=== PATIENT | female | born 1975 | race Caucasian/White ===

== ENCOUNTER 2022-12-30 07:31 | Inpatient (IN) | payer BC, OTHER ==
[2022-12-30 08:33] LABS: BHCG - Serum Negative (NEGATIVE); Pregs Control Background? CLEAR/WHITE (CLR/WHITE); Pregs Control Bar Appear? YES (CONTROL BAR)
[2022-12-30 08:39] LABS: ALT (SGPT) Less than 7 U/L (8-55); AST (SGOT) 9 U/L (5-34); Albumin 3.8 g/dL (3.5-5.0); Alkaline Phosphatase 82 U/L (40-110); Anion Gap 12 mmol/L (10-20); BUN (Urea Nitrogen) 11 mg/dL (7.0-18.7); Bilirubin, Total 0.4 mg/dL (0.2-1.2); Calc. Creatinine Clearance 0 mL/min (70-130); Calcium 8.6 mg/dL (7.8-10.44); Carbon Dioxide 22 mmol/L (22-29); Chloride 108 mmol/L (98-107); Estimated GFR 95; Globulin 3.7 g/dL (2.4-3.5); Glucose 100 mg/dL (70-105); Potassium 3.8 mmol/L (3.5-5.1); Protein, Total 7.5 g/dL (6.0-8.3); Sodium 138 mmol/L (136-145)
[2022-12-30 08:48] LABS: Troponin I Less than 0.010 ng/mL (< 0.028)
[2022-12-30 08:58] LABS: Mean Platelet Volume 10.9 fl (7.4-10.4)
[2022-12-30 09:28] LABS: #Eosinphils 0.1 10x3/uL (0.0-0.5); #Monocytes 0.4 10x3/uL (0.0-1.1); #Neutrophils 6.5 10x3/uL (1.5-8.4); %Monocytes 4.8 % (0.0-10.0); %Neutrophils 81.9 % (40.0-75.0); Hematocrit 13.6 % (34.9-44.5); Hemoglobin 3.2 g/dL (12.0-15.5); Mean Corpuscular HGB CONC 23.5 g/dL (32.0-36.0); Mean Corpuscular Volume 63.6 fl (81.6-98.3); Platelet Count 288 10x3/uL (150-450); RBC Distribution Width 22.2 % (11.5-14.5); Red Blood Cell (RBC) Count 2.14 10x6/uL (3.90-5.03); White Blood Cell (WBC) Count 7.9 10x3/uL (3.5-10.5)
[2022-12-30 09:30] LABS: Anisocytosis MODERATE=16-30 cells (100X) (0-5/hpf); Hypochromia MODERATE=16-30 cells (100X) (0-5/hpf); Microcytosis MODERATE=15-30 cells (100X) (0-5/hpf); Poikilocytosis SLIGHT = 6-15 cells (100X) (0-5/hpf)
[2022-12-30 09:31] LABS: Reflex for Review?? YES
[2022-12-30 09:52] LABS: Iron 15 ug/dL (50-170); Iron Binding Capacity, Total 450 mcg/dL (265-497)
[2022-12-30 10:16] LABS: Iron 16 ug/dL (50-170); Iron Binding Capacity, Total 450 mcg/dL (265-497)
[2022-12-30] MEDS ORDERED: Iopamidol 370 76% 100 ML VIAL ONE (12:45)
[2022-12-30] MEDS ORDERED: hydrALAZINE 20 MG/ML VIAL SLOW IVP PRN (16:06)
[2022-12-30 16:57] LABS: #Monocytes 0.4 10x3/uL (0.0-1.1); #Neutrophils 8.3 10x3/uL (1.5-8.4); %Basophils 0.1 % (0.0-2.0); %Eosinophils 0.2 % (0.0-6.0); %Lymphocytes 10.2 % (18.0-47.0); %Monocytes 4.4 % (0.0-10.0); %Neutrophils 84.4 % (40.0-75.0); Hematocrit 18.4 % (34.9-44.5); Hemoglobin 5.1 g/dL (12.0-15.5); Mean Corpuscular HGB CONC 27.7 g/dL (32.0-36.0); Mean Corpuscular Hemoglobin 19.3 pg (27.0-33.0); Mean Corpuscular Volume 69.7 fl (81.6-98.3); Platelet Count 295 10x3/uL (150-450); RBC Distribution Width 24.7 % (11.5-14.5); Red Blood Cell (RBC) Count 2.64 10x6/uL (3.90-5.03); White Blood Cell (WBC) Count 9.8 10x3/uL (3.5-10.5)
[2022-12-30 17:46] LABS: Anisocytosis MODERATE=16-30 cells (100X) (0-5/hpf); Elliptocytes SLIGHT = 2-5 cells (100X) (0-1/hpf); Hypochromia MODERATE=16-30 cells (100X) (0-5/hpf); Microcytosis MODERATE=15-30 cells (100X) (0-5/hpf); Ovalocytes SLIGHT = 2-5 cells (100X) (0-1/hpf); Poikilocytosis SLIGHT = 6-15 cells (100X) (0-5/hpf)
[2022-12-30 17:47] LABS: Tear Drops SLIGHT = 2-5 cells (100X) (0-1/hpf)
[2022-12-30 17:48] LABS: Large Platelets SLIGHT (None Seen); Platelet Adequacy Comment Appears Adequate; Schistocytes SLIGHT = 2-5 cells (100X) (0-1/hpf)
[2022-12-30] MEDS ORDERED: Iron, Sodium Ferric Gluconate 125 MG in Sodium Chloride 0.9% 100 ML IVPB SCH (20:30)
[2022-12-31 07:27] LABS: Hematocrit 18.6 % (34.9-44.5); Hemoglobin 5.4 g/dL (12.0-15.5); Mean Corpuscular Hemoglobin 20.4 pg (27.0-33.0); Mean Corpuscular Volume 70.2 fl (81.6-98.3); Platelet Count 247 10x3/uL (150-450); RBC Distribution Width 24.4 % (11.5-14.5); Red Blood Cell (RBC) Count 2.65 10x6/uL (3.90-5.03); White Blood Cell (WBC) Count 7.5 10x3/uL (3.5-10.5)
[2022-12-31] MEDS ORDERED: Bisacodyl 5 MG TAB PO PRN (11:47)
[2022-12-31] MEDS ORDERED: Polyethylene Glycol 3350 17 GM Packet PO PRN (11:47)
[2022-12-31] MEDS ORDERED: Amlodipine 5 MG TAB PO SCH (21:00)
[2023-01-01 05:56] LABS: Hematocrit 20.7 % (34.9-44.5); Hemoglobin 5.9 g/dL (12.0-15.5); Mean Corpuscular HGB CONC 28.5 g/dL (32.0-36.0); Mean Corpuscular Hemoglobin 20.1 pg (27.0-33.0); Mean Corpuscular Volume 70.4 fl (81.6-98.3); Platelet Count 262 10x3/uL (150-450); Red Blood Cell (RBC) Count 2.94 10x6/uL (3.90-5.03); White Blood Cell (WBC) Count 9.8 10x3/uL (3.5-10.5)
[2023-01-01] MEDS ORDERED: diphenhydrAMINE 25 MG in Sodium Chloride 0.9% 50 ML IVPB SCH (07:45)
[2023-01-01] MEDS ORDERED: diphenhydrAMINE 50 MG/ML VIAL IVP SCH (08:00)
[2023-01-01 13:11] VITALS: BP 126/65; TEMP 97.6
[2023-01-01 14:58] LABS: Hematocrit 24.6 % (34.9-44.5); Mean Corpuscular HGB CONC 28.5 g/dL (32.0-36.0); Mean Corpuscular Hemoglobin 20.6 pg (27.0-33.0); Mean Corpuscular Volume 72.6 fl (81.6-98.3); Platelet Count 313 10x3/uL (150-450); RBC Distribution Width 26.1 % (11.5-14.5); Red Blood Cell (RBC) Count 3.39 10x6/uL (3.90-5.03); White Blood Cell (WBC) Count 11.3 10x3/uL (3.5-10.5)
== END 2023-01-01 16:08 | disposition home or self-care (01) | DRG 812 ==
LOC: CSHERS 07:31 → CSHTELE 09:00 → OBSVTOIN 12-31 15:18
PROVIDERS: ADMIT Internal Medicine; ATTEND Internal Medicine
PROC: 30233N1 Transfusion of Nonautologous Red Blood Cells into Peripheral Vein, Percutaneous Approach (ICD-10-PCS; principal; 2022-12-31)
DX: D50.9 Iron deficiency anemia, unspecified (principal); N92.0 Excessive and frequent menstruation with regular cycle; I10 Essential (primary) hypertension; F41.0 Panic disorder [episodic paroxysmal anxiety]; Z90.710 Acquired absence of both cervix and uterus
CPT/HCPCS: 36415; 36430; 71045; 71275; 80053; 82274; 82728; 83540; 83550; 83880; 84484; 84703; 85025; 85027; 85060; 85379; 86850; 86900; 86901; 93005; 96374; 96375; G0378; J0360; J1200; J2916; J3490; P9016; Q9967

== ENCOUNTER 2023-03-04 10:27 | Emergency (ER) | payer BC ==
[2023-03-04 11:01] LABS: #Eosinphils 0.1 10x3/uL (0.0-0.5); #Monocytes 0.4 10x3/uL (0.0-1.1); #Neutrophils 4.5 10x3/uL (1.5-8.4); %Basophils 0.3 % (0.0-2.0); %Eosinophils 2.1 % (0.0-6.0); %Monocytes 6.2 % (0.0-10.0); %Neutrophils 70.2 % (40.0-75.0); Hematocrit 31.6 % (34.9-44.5); Hemoglobin 10.1 g/dL (12.0-15.5); Mean Corpuscular Hemoglobin 27.4 pg (27.0-33.0); Mean Corpuscular Volume 85.9 fl (81.6-98.3); Mean Platelet Volume 11.3 fl (7.4-10.4); Platelet Count 305 10x3/uL (150-450); RBC Distribution Width 14.5 % (11.5-14.5); Red Blood Cell (RBC) Count 3.68 10x6/uL (3.90-5.03); White Blood Cell (WBC) Count 6.3 10x3/uL (3.5-10.5)
[2023-03-04 11:12] LABS: ALT (SGPT) 8 U/L (8-55); AST (SGOT) 13 U/L (5-34); Albumin 3.9 g/dL (3.5-5.0); Alkaline Phosphatase 62 U/L (40-110); Anion Gap 12 mmol/L (10-20); BUN (Urea Nitrogen) 10 mg/dL (7.0-18.7); Bilirubin, Total 0.3 mg/dL (0.2-1.2); Calc. Creatinine Clearance 0 mL/min (70-130); Calcium 8.6 mg/dL (7.8-10.44); Carbon Dioxide 20 mmol/L (22-29); Chloride 110 mmol/L (98-107); Estimated GFR 95; Globulin 3.1 g/dL (2.4-3.5); Glucose 106 mg/dL (70-105); Sodium 138 mmol/L (136-145)
[2023-03-04 11:18] LABS: Troponin I Less than 0.010 ng/mL (< 0.028)
[2023-03-04 12:55] LABS: Bilirubin Neg (Negative); Blood, Urine 25 (Negative); Clarity Slightly Cloudy (Clear); Glucose, Urine (Dipstick) Normal (Negative); Ketone, Urine Negative (Negative); Leukocyte Negative (Negative); Nitrite Negative (Negative); Protein, Urine (Dipstick) 30 mg/dl (Neg-Trace); Urobilinogen Normal mg/dL (Less than 2)
[2023-03-04 13:04] LABS: Pregnancy Test - Urine (BHCG) Negative (Negative); Pregu Control Background? CLEAR/WHITE (CLR/WHITE); Pregu Control Bar Appear? YES (CONTROL BAR)
[2023-03-04 13:20] LABS: Bacteria/HPF Rare-Few HPF (None Seen); CAUTI Indications for Culture Pelvic or flank pain; RBC/HPF Greater than 50 HPF (0-3); Squamous Epithelial 0-3 HPF (0-3); WBC/HPF 0-3 HPF (0-3)
[2023-03-04 13:22] LABS: Urine Culture Reflex No No
== END 2023-03-04 13:18 | disposition home or self-care (01) ==
LOC: CSHERS 10:27
DX: D64.9 Anemia, unspecified (principal); N93.9 Abnormal uterine and vaginal bleeding, unspecified
CPT/HCPCS: 71045; 80053; 81001; 81025; 83880; 84484; 85025; 93005

== ENCOUNTER 2024-12-03 08:28 | Emergency (ER) | payer BC ==
[2024-12-03 09:16] LABS: Platelet Count 244 10x3/uL (150-450)
[2024-12-03 09:17] LABS: #Basophils Less than 0.03 10x3/uL (0.0-0.2); #Eosinophils 0.08 10x3/uL (0.0-0.5); #Monocytes 0.31 10x3/uL (0.0-1.1); #Neutrophils 3.90 10x3/uL (1.5-8.4); %Basophils 0.0 % (0.0-2.0); %Eosinophils 1.5 % (0.0-6.0); %Lymphocytes 21.7 % (18.0-47.0); %Monocytes 5.6 % (0.0-10.0); %Neutrophils 71.0 % (40.0-75.0); Hematocrit 15.3 % (34.9-44.5); Hemoglobin 3.8 g/dL (12.0-15.5); Mean Corpuscular Hemoglobin 16.0 pg (27.0-33.0); Mean Corpuscular Volume 64.3 fL (81.6-98.3); Red Blood Cell (RBC) Count 2.38 10x6/uL (3.90-5.03); White Blood Cell (WBC) Count 5.49 10x3/uL (3.5-10.5)
[2024-12-03 09:22] LABS: INR-International Normal Ratio 1.0; Prothrombin Time 10.5 sec (9.5-12.1)
[2024-12-03 09:26] LABS: ALT (SGPT) Less than 7 U/L (Less than 34); AST (SGOT) 14 U/L (11-34); Albumin 3.6 g/dL (3.1-4.5); Alkaline Phosphatase 91 U/L (40-110); Anion Gap 11 mmol/L (10-20); BUN (Urea Nitrogen) 9 mg/dL (7.0-18.7); Bilirubin, Total 0.4 mg/dL (0.3-1.2); Calc. Creatinine Clearance 0 mL/min (70-130); Calcium 8.7 mg/dL (7.8-10.44); Carbon Dioxide 23 mmol/L (22-29); Chloride 108 mmol/L (98-107); Globulin 3.7 g/dL (2.4-3.5); Glucose 99 mg/dL (70-105); Potassium 4.1 mmol/L (3.5-5.1); Sodium 138 mmol/L (136-145)
[2024-12-03 10:23] LABS: Anisocytosis MARKED = >30 cells (100X) (0-5/hpf); Microcytosis MODERATE=15-30 cells (100X) (0-5/hpf); Ovalocytes SLIGHT = 2-5 cells (100X) (0-1/hpf); Platelet Adequacy Comment Appears Adequate; Polychromasia SLIGHT = 2-3 cells (100X) (0-2/hpf)
[2024-12-03 10:24] LABS: Reflex for Review?? YES
[2024-12-03 18:08] LABS: Hematocrit 24.3 % (34.9-44.5); Hemoglobin 6.9 g/dL (12.0-15.5)
== END 2024-12-03 19:11 | disposition home or self-care (01) ==
LOC: CSHERS 08:28
DX: D64.9 Anemia, unspecified (principal); N93.8 Other specified abnormal uterine and vaginal bleeding; I10 Essential (primary) hypertension; Z55.6 Problems related to health literacy; Z79.899 Other long term (current) drug therapy
CPT/HCPCS: 36430; 80053; 85025; 85060; 85610; 86850; 86900; 86901; 93005; 93010; 99284; P9016